=== PATIENT | male | born 1945 | race Caucasian/White ===

== ENCOUNTER 2019-03-31 08:14 | Day surgery (SDC) | payer BC, MEDICARE, OTHER ==
[~2019-03-31] VITALS: Ht 165.1 cm; Wt 79.5 kg
[~2019-03-31 08:14] MED LIST: ASPI81EC; FINA5; TERB250
[2019-03-31] MEDS ORDERED: CELE100 (08:45)
== END 2019-03-31 10:53 | disposition home or self-care (01) ==
LOC: ORSCSDS 08:14
PROVIDERS: Internal Medicine Gastroenterology
PROC: 0DBH8ZX Excision of Cecum, Via Natural or Artificial Opening Endoscopic, Diagnostic (ICD-10-PCS; principal; 2019-03-31 09:45)
DX: Z12.11 Encounter for screening for malignant neoplasm of colon (principal); Z86.010 Personal history of colon polyps; D12.0 Benign neoplasm of cecum; K57.30 Diverticulosis of large intestine without perforation or abscess without bleeding; Z87.891 Personal history of nicotine dependence; Z79.899 Other long term (current) drug therapy
CPT/HCPCS: 88305; J2704; J7120

== ENCOUNTER 2024-07-11 07:43 | Day surgery (SDC) | payer BC ==
[~2024-07-11] VITALS: Ht 165.1 cm; Wt 74.9 kg
[~2024-07-11 07:43] MED LIST changes: +CELE100; +Lactated Ringer's 1,000 ML IV ONE; +propofoL 50 ML IV ONE
[2024-07-11] MEDS ORDERED: Lactated Ringer's 1,000 ML IV ONE (09:17)
[2024-07-11 10:43] VITALS: BP 139/75
== END 2024-07-11 10:40 | disposition home or self-care (01) ==
LOC: ORSCSDS 07:43
PROVIDERS: Internal Medicine Gastroenterology
PROC: 0DBM8ZX Excision of Descending Colon, Via Natural or Artificial Opening Endoscopic, Diagnostic (ICD-10-PCS; principal; 2024-07-11 09:15)
DX: Z12.11 Encounter for screening for malignant neoplasm of colon (principal); Z86.0101 Personal history of adenomatous and serrated colon polyps; D12.4 Benign neoplasm of descending colon; K57.30 Diverticulosis of large intestine without perforation or abscess without bleeding; Z87.891 Personal history of nicotine dependence; Z79.899 Other long term (current) drug therapy
CPT/HCPCS: 88305; J2704; J7120

== ENCOUNTER 2024-11-24 09:15 | Day surgery (SDC) | payer BC ==
[~2024-11-24] VITALS: Ht 160 cm; Wt 73.4 kg
[2024-11-24] VITALS (8 sets, daily range): BP systolic 145–168; BP diastolic 83–101
[~2024-11-24 09:15] MED LIST changes: +CeFAZolin Sodium 2,000 MG in NS 100 ML IV SCH; -FINA5; +FINA5 PO; -Lactated Ringer's 1,000 ML IV ONE; -propofoL 50 ML IV ONE
[2024-11-24] MEDS ORDERED: Bupivacaine 0.5% HCl 5 MG/ML 30MLVIAL ONE (09:35)
--- NOTE | 2024-11-24 09:35 | NUR ---
ABMULATORY INTO SDS. PT DENIES PAIN OR ANXIETY. HISTORY AND ALLERGIES REVIEWED. LUNGS CLEAR-SAT >90% ON RA. NPO STATUS CONFIRMED. CHLORHEXIDINE SHOWER AND WIPE X 2. PT BELONGINGS INCLUDING HIS GLASSES ARE IN BELONGINGS BAG BELOW THE GURNEY. PT DAUGHTER CLAIRE IS HIS RIDE HOME TODAY.
[2024-11-24] MEDS ORDERED: FentaNYL Citrate 50 MCG/ML 2 ML Injection ONE (09:59)
[2024-11-24] MEDS ORDERED: Artificial Tear Opth Oint 3.5 GM ONE (10:08)
[2024-11-24] MEDS ORDERED: Rocuronium Bromide 10 MG/ML 5ML Injection IV ONE ×2 (10:11→11:19)
[2024-11-24] MEDS ORDERED: Dexamethasone Sod Phos 10 MG/ML 1ML VIAL ONE (10:11)
[2024-11-24] MEDS ORDERED: Ketorolac Tromethamine 30mg Vial ONE (10:11)
[2024-11-24] MEDS ORDERED: Ondansetron HCl 2 MG / ML 2ML Vial ONE (10:11)
[2024-11-24] MEDS ORDERED: FentaNYL Citrate 50 MCG/ML 2 ML Injection IV PRN ×3 (10:55→11:00)
[2024-11-24] MEDS ORDERED: Labetalol HCL 5 MG/ML 4ML Injection (Single Dose) IV PRN (11:00)
[2024-11-24] MEDS ORDERED: Ondansetron HCl 2 MG / ML 2ML Vial IV PRN (11:00)
[2024-11-24] MEDS ORDERED: HYDROmorphone HCl/Pf 1MG SYR IV PRN (11:00)
[2024-11-24] MEDS ORDERED: Labetalol HCL 5 MG/ML 4ML Injection (Single Dose) ONE (11:31)
[2024-11-24] MEDS ORDERED: Phenylephrine HCl 100 MCG/ML-NS 10MLSYR (1MG/10ML) ONE (12:12)
[2024-11-24] MEDS ORDERED: Sugammadex Sodium 200 MG/2ML SDV (100 MG/ML) ONE (13:54)
[2024-11-24] MEDS ORDERED: OxyCODONE 5 mg/Acetamin 325 mg TABLET PO PRN (14:25)
--- NOTE | 2024-11-24 14:36 | NUR ---
REPORT RECEIVED FROM TIM QUEVEDO. VSS. PT ON RA. PT A&OX4. PT ABLE TO REPOSITION SELF IN BED. PT REQUESTING PO FLUIDS AND TOLERATING THEM WELL. PT HAS 3 SURGICAL SITES TO ABD COVERED WITH EXOFEN THAT ARE CDI. PT DENIES PAIN, NAUSEA OR OTHER DISCOMFORTS.
--- NOTE | 2024-11-24 14:54 | NUR ---
Dr. Laguna called and wanted pt to be instructed to monitor closely for bladder retention due to the catheter causing scant bleeding when dcd. pt instructed to go to the ER if unable to void and bladder feels full, pt ambulatory care nurse instructed as well and written on discharge instructions.
--- NOTE | 2024-11-24 15:06 | NUR ---
Patient up to Ambulate independently. Gait steady. VSS and consistent with pt baseline. Pt has no complaints and verbalizes readiness to go home. Discharge instructions reviewed with patient and his daughter. Patient verbalizes understanding. Copy given to patient to take home. Dressing to procedure site clean, dry, intact with no visible drainage, swelling, erythema or bruising noted. Discharged via wheelchair to private car for ride home. Pt belongings returned to pt.
== END 2024-11-24 15:05 | disposition home or self-care (01) ==
LOC: ORSCMMR 09:15 → ORD 10:30 → ORSCMMR 10:30 → ORD 13:00 → ORSCMMR 15:05
PROVIDERS: Surgery
PROC: 3E0T3BZ Introduction of Anesthetic Agent into Peripheral Nerves and Plexi, Percutaneous Approach (ICD-10-PCS; principal; 2024-11-24 10:30)
PROC: 8E0W4CZ Robotic Assisted Procedure of Trunk Region, Percutaneous Endoscopic Approach (ICD-10-PCS; principal; 2024-11-24 10:30)
PROC: 0YUE4JZ Supplement Bilateral Femoral Region with Synthetic Substitute, Percutaneous Endoscopic Approach (ICD-10-PCS; principal; 2024-11-24 10:30)
PROC: 0YUA4JZ Supplement Bilateral Inguinal Region with Synthetic Substitute, Percutaneous Endoscopic Approach (ICD-10-PCS; principal; 2024-11-24 10:30)
DX: K40.00 Bilateral inguinal hernia, with obstruction, without gangrene, not specified as recurrent (principal); K41.00 Bilateral femoral hernia, with obstruction, without gangrene, not specified as recurrent; K66.0 Peritoneal adhesions (postprocedural) (postinfection); Z87.891 Personal history of nicotine dependence
CPT/HCPCS: A9270; C1781; J0690; J1100; J1885; J2371; J2405; J2704; J3010; J7120